=== PATIENT | female | born 1950 | race Caucasian/White ===

== ENCOUNTER 2018-01-26 14:58 | Emergency (ER) | payer OTHER ==
[2018-01-26 15:16] VITALS: RESP 18; O2SAT 100
--- NOTE | 2018-01-26 15:46 | C.PDOC ---
History Of Present Illness 67 y/o female sent by primary care doctor for further evaluation of left foot pain that developed 3 days ago after sustaining an injury and after patient had outpatient x-ray with a confirmed fracture of the left foot. Patient denies any deformity, weakness, sensory or vascular deficits to left foot. Time Seen by Provider: 01/26/18 15:17 Chief Complaint (Nursing): Lower Extremity Problem/Injury History Per: Patient History/Exam Limitations: no limitations Onset/Duration Of Symptoms: Days Current Symptoms Are (Timing): Still Present Past Medical History Reviewed: Historical Data, Nursing Documentation, Vital Signs Vital Signs: Last Vital Signs Temp 97.7 F 01/26/18 15:14 Pulse 74 01/26/18 15:14 Resp 18 01/26/18 15:14 BP 138/80 01/26/18 15:14 Pulse Ox 100 01/26/18 15:14 Family History: States: No Known Family Hx - Social History Hx Alcohol Use: No Hx Substance Use: No Review Of Systems Except As Marked, All Systems Reviewed And Found Negative. Constitutional: Negative for: Fever, Chills ENT: Negative for: Throat Pain Cardiovascular: Negative for: Chest Pain Musculoskeletal: Positive for: Foot Pain (Left). Negative for: Back Pain Skin: Negative for: Lesions, Bruising Neurological: Negative for: Weakness, Numbness, Headache, Dizziness Physical Exam - Physical Exam Appears: Well, Non-toxic, No Acute Distress Skin: Warm, Dry, No Rash Head: Normacephalic Eye(s): bilateral: PERRL Extremity: Normal ROM (Left foot), Tenderness (over dorsal aspect Left foot overlying 5th MTB, no palpable dfomrity, no skin change, no edmea, no neurovsacular deficits distally to injury.), No Pedal Edema, Capillary Refill (less than 2 seconds to L foot), No Deformity, No Swelling Pulses: Left Dorsalis Pedis: Normal Neurological/Psych: Oriented x3, Normal Speech, Normal Motor, Normal Sensation, Normal Reflexes Gait: Steady ED Course And Treatment O2 Sat by Pulse Oximetry: 100 (RA) Pulse Ox Interpretation: Normal - Other Rad Left foot xray X-Ray: Interpreted by Me, Viewed By Me Interpretation: (+) 5th MTB fx Progress Note: Left foot x-ray ordered. After imaging review, Podiatry consult called. Pt was seen by Emr Analyst, splint applied to Left foot. Crutches provided w/instruction. Pt advised directly by Emr Analyst resident for further F/U with . Return to ED if any new changes. Disposition Counseled Patient/Family Regarding: Studies Performed, Diagnosis, Need For Followup, Rx Given - Disposition Referrals: Tiffanie Ontiveros DPM [Staff Provider] - Disposition: HOME/ ROUTINE Disposition Time: 17:00 Condition: STABLE Additional Instructions: use crutches, NONE-WEIGHT BEARING until cleared by Emr Analyst Follow up with Emr Analyst as recommend in 1 week for further evaluation and treatment return to ED if any worsening or new changes. Instructions: Foot Fracture (DC) Forms: [employer] (Senegalese) - Clinical Impression Clinical Impression: Foot fracture - PA / AUDITING CODER / Resident Statement MD/DO has reviewed & agrees with the documentation as recorded. - Scribe Statement The provider has reviewed the documentation as recorded by the Ronalibcarolyn Lopez All medical record entries made by the Scribe were at my direction and personally dictated by me. I have reviewed the chart and agree that the record accurately reflects my personal performance of the history, physical exam, medical decision making, and the department course for this patient. I have also personally directed, reviewed, and agree with the discharge instructions and disposition.
[2018-01-26 17:22] VITALS: BP 132/82; PULSE 78; TEMP 97.9
--- NOTE | 2018-01-26 18:47 | CP.PCM.CON ---
History of Present Illness - History of Present Illness History of Present Illness: Podiatry consult note for Dr. ontiveros 67 y/o female sent by primary care doctor for further evaluation of left foot pain that developed 3 days ago after sustaining an injury and after patient had outpatient x-ray with a confirmed fracture of the left foot. Patient denies any deformity, weakness, sensory or vascular deficits to left foot. Patient denies any past medical history. Patient admits to walking on the left foot PMHx: denied by patient and family PSHx: denied Allergies: NKDA Review of Systems - Review of Systems All systems: reviewed and no additional remarkable complaints except Review of Systems: As per HPI Past Patient History - Past Social History Smoking Status: Never Smoked - PSYCHIATRIC Hx Substance Use: No - SURGICAL HISTORY Hx Surgeries: No - ANESTHESIA Hx Anesthesia: No Meds Allergies/Adverse Reactions: Allergies Allergy/AdvReac Type Severity Reaction Status Date / Time No Known Allergies Allergy Verified 01/26/18 15:39 Physical Exam - Constitutional Appears: Well, Non-toxic, No Acute Distress - Head Exam Head Exam: ATRAUMATIC, NORMOCEPHALIC - Extremities Exam Additional comments: Lower extremity Exam VASC: DP and PT 2/4 bilaterally, CFT less than 3 seconds X 10, TG warm to warm within normal limits, minimal edema to the dorso-lateral aspect of the left foot NEURO: grossly intact DERM: minimal edema and erythema to the dorso-lateral aspect of the left foot at the 5th metatarsal, no open lesions, no clinical signs of infection ORTHO: moderate pain to palpation plantarly at the 5th metatarsal shaft distally, no pain dorsally, no pain with inversion or eversion, no pain with AJ range of motion, MSK unable to assess due to guarding - Neurological Exam Neurological exam: Alert, Oriented x3 - Psychiatric Exam Psychiatric exam: Normal Affect, Normal Mood Results - Vital Signs Recent Vital Signs: Last Vital Signs Temp 97.9 F 01/26/18 17:20 Pulse 78 01/26/18 17:20 Resp 18 01/26/18 17:20 BP 132/82 01/26/18 17:20 Pulse Ox 100 01/26/18 17:20 Assessment & Plan - Assessment and Plan (Free Text) Assessment: 67 /yo female seen and evaluated for left 5ht metatarsal shaft fracture Plan: Patient seen and evaluated Plan discussed with Dr. Ontiveros Left Foot X-ray: spiral, minimally displaced fracture of the distal shaft of the 5th metatarsal Patient placed in a posterior splint, patient tolerated well and advised to keep splint C/D/I Patient provided crutch training Patient advised to remain Non-Weight bearing to the LLE Patient to return to ED if symptoms worsen Patient and family demonstrated verbal understanding Patient will follow up with Dr. Ontiveros in her office Thank you for the consult - Date & Time Date: 01/26/18 Time: 18:50
--- NOTE | 2018-01-26 19:22 | RAD ---
Left foot three views History: Fracture. Comparison: None available. Findings: Transverse oblique mildly distracted fracture deformity through midshaft of the 5th metatarsal bone. Mild hallux valgus deformity. Dorsal calcaneal spurring. Impression: Transverse oblique mildly distracted fracture deformity through the midshaft of the 5th metatarsal bone.
== END 2018-01-26 17:28 | disposition home or self-care (01) ==
LOC: C.ER 14:58
DX: S92.352A Displaced fracture of fifth metatarsal bone, left foot, initial encounter for closed fracture (principal); X58.XXXA Exposure to other specified factors, initial encounter

== ENCOUNTER 2018-02-11 07:00 | Day surgery (SDC) | payer OTHER ==
[2018-02-11 07:14] VITALS: O2SAT 100
--- NOTE | 2018-02-11 07:51 | C.PDOC ---
History Of Present Illness 67 y/o female presents to ED sent by Dr. Ontiveros for surgery on left 5th metatarsal fracture sustained 2 weeks ago. Patient already medically cleared by Dr. Chaparro Ortega including CXR, Blood work and ECG. Patient has been NPO since last night and has no further physical complaints at this time. Time Seen by Provider: 02/11/18 07:12 Chief Complaint (Nursing): Medical Clearance History Per: Patient History/Exam Limitations: no limitations Onset/Duration Of Symptoms: Days Current Symptoms Are (Timing): Still Present Past Medical History Reviewed: Historical Data, Nursing Documentation, Vital Signs Vital Signs: Last Vital Signs Temp 97.8 F 02/11/18 07:02 Pulse 70 02/11/18 07:02 Resp 18 02/11/18 07:02 BP 118/79 02/11/18 07:02 Pulse Ox 100 02/11/18 07:02 - Medical History PMH: No Chronic Diseases Surgical History: No Surg Hx Family History: States: No Known Family Hx - Social History Hx Alcohol Use: No Hx Substance Use: No - Immunization History Hx Tetanus Toxoid Vaccination: No Hx Influenza Vaccination: Yes (2018) Hx Pneumococcal Vaccination: No Review Of Systems Cardiovascular: Negative for: Chest Pain Respiratory: Negative for: Cough, Shortness of Breath Gastrointestinal: Negative for: Nausea, Vomiting Musculoskeletal: Positive for: Foot Pain Skin: Negative for: Rash, Bruising Physical Exam - Physical Exam Appears: Non-toxic, No Acute Distress Skin: Warm, Dry, No Rash Head: Atraumatic, Normacephalic Eye(s): bilateral: Normal Inspection Oral Mucosa: Moist Cardiovascular: Rhythm Regular Respiratory: Normal Breath Sounds, No Rales, No Rhonchi, No Wheezing Extremity: Normal ROM, No Pedal Edema, Capillary Refill (<2 seconds), Other (left foot ortho glass in place) Pulses: Left Dorsalis Pedis: Normal Neurological/Psych: Oriented x3, Normal Speech, Normal Cognition, Normal Motor, Normal Sensation ED Course And Treatment O2 Sat by Pulse Oximetry: 100 (RA) Pulse Ox Interpretation: Normal Progress Note: Spoke to Podiatry resident, Patient to be admitted to Same Day surgery. Disposition - Disposition Disposition: HOSPITALIZED Disposition Time: 07:20 Condition: STABLE - Clinical Impression Clinical Impression: Foot fracture - Scribe Statement The provider has reviewed the documentation as recorded by the Scribcarolyn Zazueta All medical record entries made by the Scribe were at my direction and personally dictated by me. I have reviewed the chart and agree that the record accurately reflects my personal performance of the history, physical exam, medical decision making, and the department course for this patient. I have also personally directed, reviewed, and agree with the discharge instructions and disposition.
[2018-02-11] MEDS ORDERED: ceFAZolin IV 1 gm in Dextrose 1 GM/50 ML BAG IVPB ONE (09:45)
[2018-02-11] MEDS ORDERED: Bupivacaine HCl 0.5% PF (30 ml) Inj ONE (09:45)
[2018-02-11] MEDS ORDERED: Lidocaine Hydrochloride 10 ML INJ ONE (09:46)
[2018-02-11] MEDS ORDERED: Midazolam 2 MG/2 ML VIAL ONE (10:05)
[2018-02-11] MEDS ORDERED: Propofol 10 mg/ml Inj (20 ML) ONE (10:05)
[2018-02-11] MEDS ORDERED: Lidocaine Hydrochloride 5 ML INJ ONE (10:07)
[2018-02-11] MEDS ORDERED: ePHEDrine 50 mg/ml Inj ONE (10:30)
[2018-02-11] MEDS ORDERED: HYDROmorphone 0.5 mg/0.5 ml ISec IVP PRN (11:42)
--- NOTE | 2018-02-11 11:44 | PCM.SURG1 ---
Surgeon's Initial Post Op Note - Surgeon's Notes Surgeon: Dr. Ontiveros Record Label Internship: Joi Fleming PGY3, Jeff Ortega PGY2, Elda Navarrete PGY2 Type of Anesthesia: IV Sedation, Local (20cc 1:1 mixture 1% lidocaine & 0.5% marcaine) Anesthesia Administered By: Dr. Dozier Pre-Operative Diagnosis: left 5th metatarsal fracture Operative Findings: see operative report. m: 2-0 vicryl, 3-0 vicryl, 4-0 vicyrl, 4-0 monocryl. i: 10cc 0.5% marcaine Post-Operative Diagnosis: same Operation Performed: left 5th metatarsal fracture ORIF Specimen/Specimens Removed: n/a Estimated Blood Loss: EBL {In ML}: 1 Blood Products Given: N/A Drains Used: No Drains Post-Op Condition: Good Date of Surgery/Procedure: 02/11/18 Time of Surgery/Procedure: 11:43
[2018-02-11] MEDS ORDERED: Oxycodone/Acetaminophen 5/325 mg Tab PO PRN (11:50)
--- NOTE | 2018-02-11 12:37 | RAD ---
Date of service: 02/11/2018 PROCEDURE: Intraoperative Fluoroscopy. HISTORY: LT. METATARSAL FX. FINDINGS: Fluoroscopic assistance was provided fluoroscopy time = 25.8 sec. Radiation dose = 0.3 mGy. Please refer to the operative report from RAD[facility] Drake.
[2018-02-11 13:14] VITALS: RESP 16; TEMP 97.6
[2018-02-11 13:37] VITALS: BP 124/70; PULSE 64
--- NOTE | 2018-02-11 15:00 | RAD ---
Date of service: 02/11/2018 PROCEDURE: Left Foot Radiographs. Two views of the left foot performed through a fiberglass cast nidia splint which partially obscures detail particularly on the AP view HISTORY: Status post left foot surgery COMPARISON: Comparison made with prior radiographs left foot 01/26/2018. FINDINGS: BONES: There has been ORIF previously noted oblique fracture extending through the midshaft 5th metatarsal accomplished by placement of a fixation plate and 5 threaded screws. Hardware appears intact without evidence of loosening or infection. Note that a fiberglass cast and the fixation plate partially obscure bone detail and therefore assessment for calluses limit JOINTS: Joint spaces appear relatively preserved. SOFT TISSUES: Normal. OTHER FINDINGS: None. IMPRESSION: ORIF previously noted oblique fracture midshaft left 5th metatarsal. Hardware appears intact without evidence of failure.
--- NOTE | 2018-02-12 01:39 | OP ---
PROCEDURE DATE: 02/11/2018 PREOPERATIVE DIAGNOSIS: Closed displaced fracture, fifth metatarsal left foot. POSTOPERATIVE DIAGNOSIS: Closed displaced fracture, fifth metatarsal left foot. PROCEDURE: Open reduction with internal fixation, displaced fifth metatarsal fracture left foot. SURGEON: Tiffanie Ontiveros DPM. ASSISTANTS: Karlie Fleming DPM, PGY-3; Latrell Ortega DPM, PGY-2; Dr. René Navarrete DPM, PGY-2. ANESTHESIA ADMINISTERED BY: Dr. Dozier. TYPE OF ANESTHESIA: IV sedation with local injection. INDICATIONS: The patient is a 67-year-old female with the above-mentioned diagnosis. Of note, the patient did suffer an injury to her left foot two weeks ago and did sustain a "displaced fracture of the fifth metatarsal of the left foot." The patient has been seen and followed in clinic with Dr. Ontiveros, and the patient now required surgical intervention at this time. The patient signed the consent after careful explanation of all risks, benefits, complications, and alternatives for the surgical procedures. No guarantees were given nor implied. Ancef 1 g IV was given to the patient prior to the procedure. N.p.o. status was confirmed prior to bringing the patient into the operating room. OPERATIVE PROCEDURE: The patient was brought in to the operating room and placed on the operating room table in a supine position. A well-padded pneumatic ankle tourniquet was applied in a supramalleolar position to the patient's left ankle. After induction of IV sedation, the patient received a total of 20 mL of 1:1 mixture consisting of 0.5% Marcaine plain with 1% lidocaine plain in a local block fashion to the patient's left foot. Once local anesthesia was achieved, the left foot was then prepped and draped in the usual sterile manner. Esmarch bandage was utilized to exsanguinate the patient's left foot, and Pneumatic ankle tourniquet was then inflated to 350 mmHg and procedure was began. DESCRIPTION OF PROCEDURE: Open reduction with internal fixation of displaced fifth metatarsal fracture of the left foot. Our attention was now directed to the lateral aspect of the patient's left foot over the dorsal lateral aspect of the fifth metatarsal. A #15 blade was utilized to make an approximately 6 cm linear longitudinal incision to the dorsal lateral aspect of the fifth metatarsal, taking care to avoid all vital neurovascular and tendinous structures. All bleeders were cauterized and ligated as necessary. Using a combination of blunt and sharp tissue dissection, the incision was then deepened to the subcutaneous tissue down to the level of the periosteum. A fresh #15 blade was utilized to make a linear incision to the periosteum and a freer elevator was utilized to free the periosteal tissue both medially and laterally, thus exposing the fifth metatarsal and the oblique fracture into the operative site. Next, a 15 blade was utilized to debris any hematoma and debris seen within the fracture site. Surgical site was then flushed with copious amount of sterile normal saline solution. At this time, a bone reduction clamp was utilized to reduce and realign the fifth metatarsal anatomic position which was checked using intraoperative fluoroscopy. Next, a K-wire was inserted across the distal and proximal aspect of the fracture site, and next using standard AO principles and techniques, a lag compression screw was inserted in a perpendicular fashion across the fracture site, measuring 2.7 x 16 mm cortical screws. Next, a five hole Synthes tubular locking plate was then chosen from the site, and was then carefully placed over the fractured fifth metatarsal, and a K-wire was placed at the most distal hole and also at the most proximal hole and positioning of the plate was checked using intraoperative fluoroscopy at this time. Next, using standard AO principles and techniques, a 2.7 screw was inserted at the most proximal hole and then at the most distal hole. Finally, the two remaining holes, amendable for fixation at this time were then entered in the plate in order to hold with weight to the bone. It should be noted that the second to most distal hole was left free. Due to the location of the fracture, reduction of the metatarsal fracture appeared to be excellent at this time and was checked using intraoperative fluoroscopy, the plate appear to be well contoured to the bone at this time. Next, the periarticular clamps were removed, and all K-wires were removed in the fifth metatarsal. The surgical site was then flushed with copious amounts of normal sterile saline solution. The periosteal tissue was reapproximated and coapted using 3-0 Vicryl. Subcutaneous tissue was reapproximated using 3-0 Vicryl, and subcuticular tissue was re-approximated and coapted using 4-0 Monocryl in a running sutured technique. Postoperative bandages included Steri-Strips Adaptic. Additionally, 10 mL of 0.05% Marcaine plain was introduced to the surgical site postoperatively. Surgical site was then dressed with 4x4 gauze ,Myranda, Kerlix, and a well-padded posterior splint with the foot placed in neutral position was then applied to the patient's left lower extremity. POSTOPERATIVE CONDITION: The patient tolerated the procedure well and the anesthesia well with no apparent complications or complaints. The patient was escorted from the OR to the recovery room with vital signs stable and neurovascular structures intact to the patient's left foot. The patient will be strictly nonweightbearing to the left lower extremity with crutches and/or walker. The patient will follow up in the clinic within one week with Dr. Ontiveros. Karlie Fleming DPM Tiffanie Ontiveros DPM
== END 2018-02-11 14:00 | disposition home or self-care (01) ==
LOC: C.ER 07:00 → C.SDS 08:06
PROVIDERS: ATTEND Podiatrist Foot & Ankle Surgery
DX: S92.352A Displaced fracture of fifth metatarsal bone, left foot, initial encounter for closed fracture (principal)
CPT/HCPCS: 28485; 73620; 97116; 97161; G8978; G8979; G8980; J0690; J2250; J2704; J3010